=== PATIENT | male | born 1985 | race Caucasian/White ===

== ENCOUNTER 2020-03-23 16:51 | Emergency (ER) | payer OTHER, SELFPAY ==
--- NOTE | 2020-03-23 16:58 | ED.SKABFB ---
HPI - Skin/Abscess/Foreign Bdy General Chief complaint: Skin/Abscess/Foreign Body Stated complaint: right leg rash Time Seen by Provider: 03/23/20 16:58 Source: patient and RN notes reviewed History of Present Illness HPI narrative: Patient is a 34-year-old male who presents the urgent care with complaints of a itchy red rash to bilateral lower legs and lower abdomen. Patient states is been there for multiple weeks possibly a month . Patient has been using hydrocortisone cream without much relief. Patient states that the rash is more itchy and seems to be worse when he sweats. No other acute complaints. No acute distress noted. Patient read the plan of care. Related Data Allergies Allergy/AdvReac Type Severity Reaction Status Date / Time No Known Allergies Allergy Unverified 03/19/18 12:54 Review of Systems Review of Systems: Narrative: CONSTITUTIONAL: Denies fever, chills, or sweats. EYES: Denies visual changes, redness, or discharge. ENT: Denies rhinorrhea, congestion, sore throat, or otalgia. CARDIOVASCULAR: Denies chest pain, palpitations, or edema. RESPIRATORY: Denies cough or dyspnea. GASTROINTESTINAL: Denies abdominal pain, nausea, vomiting, or diarrhea. GENITOURINARY: Denies dysuria or hematuria. SKIN: Reports of an itchy rash to bilateral lower legs and lower abdomen MUSCULOSKELETAL: Denies back pain, joint pain, or myalgia. NEUROLOGIC: Denies headache, numbness, or weakness. All other systems reviewed are negative, except as documented in HPI. [facility] Family History Family History (Updated 05/21/14 @ 07:13 by DOCTOR UNKNOWN) Father Hypertension Family history of type 2 diabetes mellitus Social History Social History Smoking status: Former smoker Smoking end date: 09/24/04 Alcohol intake: current Comments At the time of my signature, I reviewed and agree with the nursing past medical, surgical, social, and family history. There is no relevant family history pertinent to the patient complaint. Exam Narrative: Exam Narrative: GENERAL: This is a well-nourished, well-developed patient, in no apparent distress. HEAD: normocephalic, atraumatic. EYES: PERRL. Sclera clear/white. Vision is grossly intact. EARS: External ears normal NOSE: External nose normal with no obvious nasal discharge, nares without redness, no rhinorrhea. THROAT: Mucous membranes moist NECK: Neck supple CARDIOVASCULAR: Regular rate and rhythm without murmurs, gallops, or rubs. RESPIRATORY: Clear to auscultation. Breath sounds equal bilaterally. No wheezes, rales, or rhonchi. SKIN: Fungal patch-like erythemic dermatitis noted to bilateral medial lower legs and lower abdomen/suprapubic region NEURO: awake, alert, and oriented to person, place and time. There were no obvious focal neurologic abnormalities. EXTREMITIES: No clubbing, cyanosis, or edema. Course Vital Signs Vital signs: Vital Signs Temperature 97.8 F 03/23/20 17:00 Pulse Rate 84 03/23/20 17:00 Respiratory Rate 16 03/23/20 17:00 Blood Pressure 132/83 03/23/20 17:00 Pulse Oximetry 99 03/23/20 17:00 Temperature 97.8 F 03/23/20 17:00 Pulse Rate 84 03/23/20 17:00 Respiratory Rate 16 03/23/20 17:00 Blood Pressure 132/83 03/23/20 17:00 Pulse Oximetry 99 03/23/20 17:00 reviewed MDM - Skin/Abscess/Foreign Bdy MDM Narrative Medical decision making narrative: Advised the patient to use prescription cream to the areas as directed. Make sure to use hand motor equipment lieutenant in between time or if the areas become moist or sweaty. Wear pants at bedtime. Avoid occlusive clothing. Avoid wearing belts. Wear loose pants at the waistline. If you become sweaty, you need to change her close. Use a different bath towel after each showering. If you are shaving in the affected areas, avoid at this time or use a new razor with each shave. Complete oral medication as directed. Do not take pills together?follow prescription directions. Follow-up with your
[2020-03-23 17:00] VITALS: BP 132/83; PULSE 84; RESP 16; TEMP 36.6; O2SAT 99
== END 2020-03-23 17:19 | disposition home or self-care (01) ==
PROVIDERS: Emergency Provider Nurse Practitioner Family
DX: B35.9 Dermatophytosis, unspecified (principal); Z87.891 Personal history of nicotine dependence
CPT/HCPCS: 99213; G0463

== ENCOUNTER 2021-08-23 08:59 | Emergency (ER) | payer OTHER, SELFPAY ==
--- NOTE | ~2021-08-23 | XR_ITS ---
EXAMINATION: XR chest 1V portable EXAM DATE: 08/23/2021 10:53 INDICATION: Fever, cough and shortness of breath. TECHNIQUE: Portable AP frontal chest x-ray was obtained. There is no prior study for comparison. FINDINGS: The lungs are clear. There are no pleural effusions. The cardiomediastinal silhouette is within normal limits. There is no pneumothorax suspected. The bones and soft tissues are unremarkab le. IMPRESSION: No acute cardiopulmonary findings. Reviewed, dictated and finalized at location A. [employer]
[2021-08-23 09:20] VITALS: BP 135/83; PULSE 81; RESP 20; TEMP 37; O2SAT 95
[2021-08-23] MEDS: SODIUM CHLORIDE 0.9% IV 500 ML 999 ML IV CONT (10:31)
[2021-08-23] MEDS: IBUPROFEN 400 MG TABLET 800 MG PO (10:33)
[2021-08-23 10:35] LABS: Hematocrit 39.1 % (40.0-54.0); Hemoglobin 13.4 g/dL (14.0-18.0); Mean Corpuscular HGB Conc 34.3 g/dL (32.0-36.0); Mean Corpuscular Hemoglobin 29.5 pg (27.0-31.0); Mean Corpuscular Volume 86.1 fL (78.0-102.0); Mean Platelet Volume 10.4 fl (8.7-11.0); Platelet Count Result 156 K/mm3 (150-420); Red Blood Count 4.54 M/mm3 (4.70-6.10); Red Cell Distribution Width 12.6 % (11.6-14.4); White Blood Count 3.7 K/mm3 (4.8-10.8)
[2021-08-23 10:50] LABS: Alanine Aminotransferase 44 U/L (16-63); Albumin Level 3.9 g/dL (3.4-5.0); Alkaline Phosphatase 47 U/L (46-116); Anion Gap 10 mmol/L (8-16); Aspartate Amino Transferase 36 U/L (15-37); Bilirubin,Total 0.4 mg/dL (0.00-1.00); Blood Urea Nitrogen 12 mg/dL (7-18); Calcium 8.4 mg/dL (8.5-10.1); Carbon Dioxide 27 mmol/L (21-32); Chloride 103 mmol/L (98-108); Estimated CRCL calculation 164 ml/min; Estimated Glomerular Filt Rate > 60; Glucose 99 mg/dL (70-99); Osmolality Calculated 289 mOsm/kg (285-295); Sodium 140 mmol/L (136-145)
[2021-08-23 10:51] LABS: Potassium 4.6 mmol/L (3.5-5.1)
[2021-08-23 10:55] LABS: Band Neutrophils Percent 8 % (0-6); Basophils Percent Manual 0 % (0-1); Eosinophils Percent Manual 0 % (1-6); Lymphocytes Absolute Manual 0.92 K/mm3 (1.1-4.5); Lymphocytes Percent Manual 25 % (18-44); Monocytes Absolute Manual 0.22 K/mm3 (0.1-0.90); Monocytes Percent Manual 6 % (3-9); Neutrophils Absolute Manual 2.55 K/mm3 (1.3-6.7); Neutrophils Percent Manual 61 % (46-73); Platelet Estimate Adequate (Adequate); Total Cells Counted 100
[2021-08-23 10:56] LABS: Influenza Control Valid (Valid); SARS-CoV-2 Ag Positive (Negative)
[2021-08-23 11:08] VITALS: BP 134/79; PULSE 74; RESP 16; O2SAT 94
--- NOTE | 2021-08-23 11:20 | ED.URI ---
HPI - URI/Sore Throat General Chief Complaint: Upper Respiratory Infection Stated Complaint: FEVER ACHY COUGH Time Seen by Provider: 08/23/21 09:02 Source: patient and RN notes reviewed Mode of arrival: ambulatory Limitations: no limitations History of Present Illness MD elicited complaint: fever and cough Onset (ago): day(s) (3) Severity: mild Pain scale (0-10): 1 Able to tolerate fluids by mouth: Yes Exacerbating factors: nothing Relieving factors: nothing Associated symptoms: fever, chills, myalgias, headache, nasal congestion and cough Treatments prior to arrival: none Related Data Allergies Allergy/AdvReac Type Severity Reaction Status Date / Time No Known Allergies Allergy Verified 08/23/21 09:23 Review of Systems Review of Systems: All systems reviewed & are unremarkable except as noted in HPI and below PMFSH Past Medical History Medical History COVID-19 Viral syndrome Family History Family History Father Hypertension Family history of type 2 diabetes mellitus Social History Social History Smoking status: Former smoker Smoking end date: 09/24/04 Alcohol intake: current Exam Const: General: healthy appearing, no acute distress and alert Nutritional Appearance: obese Orientation/consciousness: patient oriented x3 Limitations: no limitations HENMT: Head: normal to inspection Ears: external ears normal and TM's normal bilaterally General nose exam: Normal external nose present and Normal nares present Face and sinus: normal facial exam Mouth: Yes moist mucous membranes Eyes: Pupils: Equal, round and reactive pupils present EOM: EOMs intact bilaterally Neck: Neck: normal visual inspection and no lymphadenopathy Chest: Chest palpation & inspection: normal inspection of the chest Resp: Effort & Inspection: normal respiratory effort Auscultation: clear to auscultation bilaterally Cardio: Rate: regular rate Rhythm: regular rhythm GI: GI Palp: Yes Soft to palpation and No Tenderness to palpation present (GI) Percussion: Yes normal to percussion Auscultation: normal bowel sounds : General: Yes bladder normal to palpation and Yes no CVA tenderness Back/Spine/Pelvis: Back: no CVA tenderness Skin: General skin exam: normal color Rashes: no rashes Neuro: General: patient oriented x3, moves all extremities, no meningeal signs and no focal motor deficits Extrem: General: normal to inspection and no pedal edema Psych: Mental Status: mental status grossly normal Affect: normal affect Attitude: cooperative Thought content: Yes Normal thought content present Course Course Emergency Course: Pt was stable and less painful in the ED. no acute resp distress. Reevaluation(s) Date: 08/23/21 Time: 09:57 Vital Signs Vital signs: Vital Signs Temperature 37.0 C 08/23/21 09:20 Pulse Rate 81 08/23/21 09:20 Respiratory Rate 20 08/23/21 09:20 Blood Pressure 135/83 08/23/21 09:20 Pulse Oximetry 95 08/23/21 09:20 Temperature 37.0 C 08/23/21 09:20 Pulse Rate 74 08/23/21 11:08 Respiratory Rate 16 08/23/21 11:08 Blood Pressure 134/79 08/23/21 11:08 Pulse Oximetry 94 08/23/21 11:08 MDM - URI/Sore Throat Differential Diagnosis Differential diagnosis: Likely upper respiratory infection, sinusitis, viral infection, bronchitis and pharyngitis Medical Records Attestation: I reviewed the patient's medical records. Lab Data Attestation: I reviewed the patient's lab results. Result diagrams: 08/23/21 10:01 08/23/21 10:01 Labs: Lab Results 08/23/21 08/23/21 08/23/21 Range/Units 10:01 10:01 10:01 WBC 3.7 L (4.8-10.8) K/mm3 RBC 4.54 L (4.70-6.10) M/mm3 Hgb 13.4 L (14.0-18.0) g/dL Hct 39.1 L (40.0-54.0) % MCV 86.1 (78.0-102.0) fL MCH 29
== END 2021-08-23 11:54 | disposition home or self-care (01) ==
PROVIDERS: Emergency Provider Emergency Medicine; PCP Internal Medicine
DX: U07.1 COVID-19 (principal)
CPT/HCPCS: 71045; 80053; 85025; 87081; 87426; 87804; 87880; 96360; 99283; A9270; C9803; J7040

== ENCOUNTER 2021-08-24 12:35 | Outpatient (CLI) | payer OTHER, SELFPAY ==
--- NOTE | 2021-08-24 12:45 | PC.NURSE ---
Pt to room 209 amb. A&Ox3. Has no questions or complaints. Saige consent signed. Plan of care explained. Oriented to room. Call lees in reach. Reminded to call with needs.
[2021-08-24] MEDS: diphenhydrAMINE HCl CAP 25 MG CAPSULE PO (13:10)
[2021-08-24] MEDS: ACETAMINOPHEN 325 MG TABLET 650 MG PO (13:10)
[2021-08-24 13:11] VITALS: BP 128/69; PULSE 75; RESP 20; TEMP 36.9; O2SAT 96
[2021-08-24] MEDS: FAMOTIDINE 20 MG TABLET PO (13:11)
== END 2021-08-24 12:36 | disposition home or self-care (01) ==
LOC: CHSTREATRM 12:38
PROVIDERS: Visit Provider Emergency Medicine
DX: U07.1 COVID-19 (principal)
CPT/HCPCS: A9270; J7050; M0243; Q0244

== ENCOUNTER 2022-03-08 13:04 | Emergency (ER) | payer OTHER, SELFPAY ==
[2022-03-08 13:20] VITALS: BP 130/88; PULSE 83; RESP 18; TEMP 37.2; O2SAT 96
--- NOTE | 2022-03-08 14:04 | ED.GENADULT ---
HPI - General Adult General Chief complaint: Abdominal Pain Stated complaint: right lower abdo pain Time Seen by Provider: 03/08/22 13:40 Source: patient, RN notes reviewed and old records reviewed Mode of arrival: ambulatory Limitations: no limitations History of Present Illness HPI narrative: 36 year old male presents to [facility] care with complaints of right lower area of abdomen pain since Sunday. Patient reports that pain initially was more mid abdomen and has since radiated over to the right lower abdomen. Patient denies any nausea and vomiting, no fever or any diarrhea.Patient reports that he has not been able to eat today has been drinking fluids.Denies any urinary burning or pain with urination,no flank pain. Patient reports that he had normal bowel movement this morning.He reports no fevers has taken Tylenol for his discomfort. complaint: right lower abdomen pain Onset (ago): day(s) (2) Severity scale (1-10): 7 Treatments prior to arrival: other (Tylenol) Related Data Home Medications Medication Instructions Recorded Confirmed No Home Medications 03/08/22 03/08/22 Allergies Allergy/AdvReac Type Severity Reaction Status Date / Time No Known Allergies Allergy Verified 03/08/22 13:14 Review of Systems Review of Systems: CONSTITUTIONAL: Denies fever, chills, or sweats. EYES: Denies visual changes, redness, or discharge. ENT: Denies rhinorrhea, congestion, sore throat, or otalgia. CARDIOVASCULAR: Denies chest pain, palpitations, or edema. RESPIRATORY: Denies cough or dyspnea. GASTROINTESTINAL:Positive for right abdomen pain, no nausea, vomiting, or diarrhea. GENITOURINARY: Denies dysuria or hematuria. SKIN: Denies rash or itching. MUSCULOSKELETAL: Denies back pain, joint pain, or myalgia. NEUROLOGIC: Denies headache, numbness, or weakness. PSYCHIATRIC: Denies anxiety or depression. [facility] Past Medical History Medical History Asthma COVID-19 Viral syndrome Surgical History Surgical History H/O vasectomy History of arthroscopy of left shoulder Family History Family History Father Hypertension Family history of type 2 diabetes mellitus Social History Social History (Updated 03/09/22 @ 23:26 by Marianne Murphy NP) Smoking status: Former smoker Smoking end date: 09/24/04 Alcohol intake: current Substance use type: does not use Living arrangements: with family Gender identity (if verbalized by the patient): Male Comments At time of signature, agree with nursing past medical, surgical, social and family history. There is no relevant family history pertinent to the presenting complaint Exam Narrative: GENERAL: Well-appearing, well-nourished,obese and in no acute distress. HEAD: Normocephalic, atraumatic. EYES: PERRLA and EOMI. ENT: Nares clear, no rhinorrhea or epistaxis. Mucous membranes moist. NECK: Supple.no lymphadenopathy CHEST: Clear to auscultation. No respiratory distress.SAO2 96% on room air HEART: Regular rate and rhythm. No murmur heard. Normal peripheral pulses. ABDOMEN: Soft, tender to palpation right lower abdominal quadrant, nondistended, normal active bowel sounds.No CVA tenderness on examination EXTREMITIES: Normal range of motion. No edema. SKIN: Warm, dry, no rash. NEURO: No focal deficits. Alert and oriented x3. Course Course Level of Care: Express Care Visit Vital Signs Vital signs: Vital Signs Temperature 37.2 C 03/08/22 13:20 Pulse Rate 83 03/08/22 13:20 Respiratory Rate 18 03/08/22 13:20 Blood Pressure 130/88 03/08/22 13:20 Pulse Oximetry 96 03/08/22 13:20 Oxygen Delivery Room Air 03/08/22 13:20 Temperature 37.2 C 03/08/22 13:20 Pulse Rate 83 03/08/22 13:20 Respiratory Rate 18 03/08/22 13:20 Blood Pressure 130/88 03/08/22 13:20 Pulse Oximetry 9
== END 2022-03-08 14:19 | disposition short-term general hospital (02) ==
PROVIDERS: Emergency Provider Registered Nurse; PCP Internal Medicine
DX: R10.31 Right lower quadrant pain (principal); Z87.891 Personal history of nicotine dependence; J45.909 Unspecified asthma, uncomplicated; Z86.16 Personal history of COVID-19
CPT/HCPCS: 81003; 99212; G0463

== ENCOUNTER 2023-10-15 20:38 | Emergency (ER) | payer OTHER, SELFPAY ==
--- NOTE | ~2023-10-15 | XR_ITS ---
EXAMINATION: XR shoulder RT min 2V DATE: 10/15/2023 21:11 INDICATION: Right shoulder pain. TECHNIQUE: 4 views of right shoulder were obtained. COMPARISON: None. FINDINGS: Bone alignment is normal. No fracture. Joint spaces are normal. IMPRESSION: 1. Normal right shoulder. Reviewed, dictated and finalized at location E. SPOTTER IMPRESSION: 1. Normal right shoulder.
[2023-10-15 20:38] VITALS: BP 128/81; PULSE 73; RESP 18; TEMP 36.5; O2SAT 97
--- NOTE | 2023-10-15 20:52 | ED.EXTPRO ---
HPI - Extremity Problem General Chief complaint: Extremity Problem,Nontraumatic Stated complaint: right shoulder pain Time Seen by Provider: 10/15/23 20:52 Source: patient Mode of arrival: ambulatory Limitations: no limitations History of Present Illness HPI Narrative: 38 year old male presents to the Emergency Department complaining of right shoulder pain. Onset several months ago. Denies any trauma or unusual activity. Has not seen Primary Care Physician. States he is in the Emergency Department tonight because it hurts. Pain worse with movement. Pain up upper right trapezius distribution. No numbness or tingling. MD Complaint: extremity pain Onset (ago): month(s) (several) Location: right Radiation: none Relieving factors: nothing Exacerbating factors: other (movement) Associated symptoms: denies other symptoms Related Data Allergies Allergy/AdvReac Type Severity Reaction Status Date / Time No Known Allergies Allergy Verified 03/08/22 13:14 Review of Systems Review of Systems: All systems reviewed & are unremarkable except as noted in HPI and below Constitutional: Constitutional: Reports as per HPI Eyes: Eyes: Reports as per HPI ENT: Reports system reviewed and no additional complaints, except as documented Cardiovascular: Cardiovascular: Reports as per HPI and Denies chest pain Respiratory: Respiratory: Reports as per HPI and Denies dyspnea Gastrointestinal: Gastrointestinal: Reports as per HPI, Denies diarrhea, Denies nausea and Denies vomiting Genitourinary: Genitourinary: Reports no additional male genitourinary complaints Musculoskeletal: Musculoskeletal: Reports no additional musculoskeletal complaints and Reports as per HPI Neurologic: Reports system reviewed and no additional complaints, except as documented and Denies numbness PMFSH Past Medical History Medical History Asthma COVID-19 Viral syndrome Surgical History Surgical History H/O vasectomy History of arthroscopy of left shoulder Family History Family History Father Hypertension Family history of type 2 diabetes mellitus Social History Social History Smoking status: Former smoker Smoking end date: 09/24/04 Alcohol intake: current Substance use type: does not use Living arrangements: with family Gender identity (if verbalized by the patient): Male Exam Const: General: healthy appearing, no acute distress and alert Nutritional Appearance: well nourished Orientation/consciousness: patient oriented x3 Limitations: no limitations HENMT: Head: normal to inspection Ears: external ears normal Face/Nose/Sinus: Normal external nose present Face and sinus: normal facial exam Eyes: Conjunctivae: conjunctivae normal Pupils: Equal, round and reactive pupils present EOM: EOMs intact bilaterally Direct Ophthalmoscopy: no photophobia Neck: Neck: normal visual inspection Chest: Chest palpation & inspection: normal inspection of the chest Resp: Effort & Inspection: normal respiratory effort Cardio: Rate: regular rate Rhythm: regular rhythm GI: Inspection: non-distended GI Palp: Yes Soft to palpation and No Tenderness to palpation present (GI) Back/Spine/Pelvis: Back: no CVA tenderness Skin: General skin exam: normal color Rashes: no rashes Wounds: no wounds Neuro: General: patient oriented x3, moves all extremities, no meningeal signs, no focal motor deficits and CN's II-XI intact bilaterally Cranial nerves: Yes Nystagmus not present Speech: normal speech Gait exam (Neuro): Normal gait present Extrem: General: normal to inspection Psych: Mental Status: mental status grossly normal Course Course Emergency Course: 38 y/o male presents to the ED c/o chronic R shoulder pain for months
[2023-10-15] MEDS: HYDROcodone/acetaminophen (*CRX) 10-325 MG TABLET 1 TAB PO (21:44)
== END 2023-10-15 21:45 | disposition home or self-care (01) ==
PROVIDERS: Emergency Provider Emergency Medicine
DX: M25.511 Pain in right shoulder (principal); G89.29 Other chronic pain; J45.909 Unspecified asthma, uncomplicated; Z87.891 Personal history of nicotine dependence
CPT/HCPCS: 73030; 99283; A9270

== ENCOUNTER 2024-07-08 18:41 | Emergency (ER) | payer OTHER, SELFPAY ==
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
[2024-07-08 18:56] VITALS: BP 122/73; PULSE 82; RESP 20; TEMP 36.8; O2SAT 95
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
== END 2024-07-08 20:20 | disposition home or self-care (01) ==
PROVIDERS: Emergency Provider Nurse Practitioner Family; PCP Internal Medicine
DX: R07.89 Other chest pain (principal); M25.552 Pain in left hip; V49.60XA Unspecified car occupant injured in collision with unspecified motor vehicles in traffic accident, initial encounter; J45.909 Unspecified asthma, uncomplicated; Z86.16 Personal history of COVID-19; Z98.52 Vasectomy status; Z87.891 Personal history of nicotine dependence
CPT/HCPCS: 71100; 99213; G0463